=== PATIENT | male | born 1945 | race Hispanic/Latino ===

== ENCOUNTER 2018-12-22 08:08 | Day surgery (SDC) | payer MEDICARE, BC ==
[2016-09-24 09:52] VITALS: BMI 30.8
[2018-12-22] MEDS ORDERED: Propofol 10 mg/ml Inj (20 ML) ONE (09:31)
[2018-12-22] MEDS ORDERED: Sodium Chloride 0.9% 1,000 ML IV SCH (09:45)
[2018-12-22 10:55] VITALS: BP 135/68; PULSE 53; RESP 16; TEMP 97.6; O2SAT 98
== END 2018-12-22 11:20 | disposition home or self-care (01) ==
LOC: ENDO 08:08
PROVIDERS: ATTEND Internal Medicine Gastroenterology
DX: K22.70 Barrett's esophagus without dysplasia (principal); Z85.01 Personal history of malignant neoplasm of esophagus; Z90.49 Acquired absence of other specified parts of digestive tract; Z88.1 Allergy status to other antibiotic agents
CPT/HCPCS: 43239; 88305; 88312; J2001; J2704; J7030; J7040

== ENCOUNTER 2019-01-19 06:44 | Outpatient (CLI) | payer MEDICARE, BC | END 2019-01-19 06:45 | disposition home or self-care (01) | LOC: CARDIO 06:44 ==